=== PATIENT | female | born 1985 | race Caucasian/White ===

== ENCOUNTER 2017-09-27 15:56 | Emergency (ER) | payer MEDICAID, OTHER ==
[~2017-09-27] VITALS: Ht 163.8 cm; Wt 75.1 kg
[~2017-09-27 15:56] MED LIST: UNIS50CA; ZOFR8TAB4 PO
[2017-09-27 16:07] VITALS: BP 132/99; TEMP 98.2
[2017-09-27] MEDS ORDERED: ERYTOIN10 RIGHT EYE (16:39)
--- NOTE | 2017-09-27 16:40 | PD ---
HPI Chief Complaint: Eye Problems/Injury Time Seen by Provider: 16:23 Travel History International Travel<30 days: No Contact w/Intl Traveler<30days: No Traveled to known affect area: No History of Present Illness HPI 32 year old female here with injury to the right eye. She reports that her eye was scratched by the edge of a shoebox prior to arrival. She reports foreign body sensation in the right eye, mild blurred vision, tearing. Symptom severity is moderate. Unrelieved by washing the eye out with tap water. No aggravating factors. PFSH Past Medical History Medical History: Denies Significant Hx Anemia: Yes Diminished Hearing: No Tetanus Vaccination: < 5 Years Influenza Vaccination: No ?: Not LMP: 08/13/17 : 2 Para: 1 Miscarriage: 0 Past Surgical History Cholecystectomy: Yes (2005) Oral Surgery: Yes (WISDOM TEETH) Social History Alcohol Use: Yes () Tobacco Use: No Substance Use: No Allergies-Medications (Allergen,Severity, Reaction): Coded Allergies: codeine (Unverified Allergy, Severe, 09/27/17) magnesium (Unverified Allergy, Severe, 09/27/17) magnesium sulfate (Unverified Allergy, Severe, 09/27/17) morphine (Unverified Allergy, Severe, 09/27/17) Reported Meds & Prescriptions Reported Meds & Active Scripts Active Review of Systems Except as stated in HPI: all other systems reviewed are Neg Eyes: Positive: Blurred Vision, Foreign Body Sensation, Tearing HENT: No: Headaches Cardiovascular: No: Chest Pain or Discomfort Respiratory: No: Shortness of Breath Gastrointestinal: No: Abdominal Pain Genitourinary: No: Dysuria Physical Exam Narrative GENERAL: Alert and well-appearing 32-year-old female. SKIN: Warm and dry. HEAD: Normocephalic. EYES: Right eye mildly injected. Pupils equal, round, react to light. EOMs intact. Corneas clear. 4mm linear area of fluorescein dye uptake over the iris located at 6 O'clock. Visual acuity: L: 2//15, R:20/30, B: 20/15 NECK: Supple CARDIOVASCULAR: Regular rate and rhythm without murmurs, gallops, or rubs. RESPIRATORY: Breath sounds equal bilaterally. No accessory muscle use. Data Data Last Documented VS Vital Signs Date Time Temp Pulse Resp B/P (MAP) Pulse Ox O2 Delivery O2 Flow Rate FiO2 09/27/17 16:07 98.2 100 16 132/99 (110) MDM Medical Decision Making Medical Screen Exam Complete: Yes Emergency Medical Condition: Yes Differential Diagnosis Corneal abrasion, corneal ulcer, foreign body Narrative Course 32-year-old female here with a mild corneal abrasion to the right eye. Erythromycin ointment was applied and prescription for discharge. She is to follow-up with ophthalmology for recheck. Diagnosis Primary Impression: Corneal abrasion Qualified Codes: S05.01XA - Injury of conjunctiva and corneal abrasion without foreign body, right eye, initial encounter Referrals: Gabriela Mcgill MDyardage caller Additional Instructions: Antibiotic ointment as directed. Follow-up with ophthalmology for recheck. And if he had new or worsening symptoms. Scripts Erythromycin Opth Oint (Erythromycin Opth Oint) 5 Mg/Gm Oint 1 APPLIC RIGHT EYE QID for Infection, #1 TUBE 0 Refills Prov: Jody Fall 09/27/17 Disposition: 01 DISCHARGE HOME Condition: Stable Jody Fall Sep 27, 2017 16:40
== END 2017-09-27 16:58 | disposition home or self-care (01) ==
LOC: PHEFT 15:56
DX: S05.01XA Injury of conjunctiva and corneal abrasion without foreign body, right eye, initial encounter (principal); X58.XXXA Exposure to other specified factors, initial encounter; Z88.5 Allergy status to narcotic agent; Z88.8 Allergy status to other drugs, medicaments and biological substances
CPT/HCPCS: 99283